=== PATIENT | female | born 1950 | race Caucasian/White ===

== ENCOUNTER 2022-10-06 12:06 | Inpatient (IN) | payer MEDICARE, BC, OTHER ==
[~2022-10-06] VITALS: Ht 167.6 cm; Wt 55.8 kg
[2022-10-06 12:31] LABS: HEMATOCRIT 40.9 % (31.2-41.9); MEAN CORPUSCULAR HEMOGLOBIN 25.1 uug (24.7-32.8); MEAN CORPUSCULAR VOLUME 78.2 fL (75.5-95.3); PLATELET COUNT (AUTO) 319 K/uL (179-408)
[2022-10-06 12:45] LABS: CARBON DIOXIDE 29 mmol/L (21-32); CHLORIDE 106 mmol/L (98-107); CREATININE 1.2 mg/dL (0.6-1.3); GLUCOSE 94 mg/dL (74-106); POTASSIUM 4.2 mmol/L (3.5-5.1); UREA NITROGEN, BLOOD 31 mg/dL (7-18)
[2022-10-06 12:46] LABS: *AMPHETAMINE, URINE NEGATIVE (NEGATIVE); *CANNABINOID, URINE NEGATIVE (NEGATIVE); *COCCAINE, URINE NEGATIVE (NEGATIVE); *OPIATE, URINE NEGATIVE (NEGATIVE); *PHENCYCLIDINE SCREEN,URINE NEGATIVE (NEGATIVE)
[2022-10-06 12:51] LABS: ALANINE AMINOTRANSFERASE 26 U/L (14-59); ALKALINE PHOSPHATASE 121 U/L (50-136); ASPARTATE AMINOTRANSFERASE 21 U/L (15-37); BILIRUBIN,DIRECT 0.1 mg/dL (0.0-0.2); BILIRUBIN,TOTAL 0.2 mg/dL (0.2-1.0); TOTAL PROTEIN, SERUM 7.1 g/dL (6.4-8.2)
[2022-10-06 12:52] LABS: ETHANOL < 3 MG/DL (0-0)
--- NOTE | 2022-10-06 12:55 | NUR ---
Pt out of ER for CT scan.
[2022-10-06] MEDS ORDERED: DULO60CA45 PO (12:59)
[2022-10-06] MEDS ORDERED: ALBU18HF2 INH (12:59)
[2022-10-06] MEDS ORDERED: MEMA10TA PO (12:59)
[2022-10-06] MEDS ORDERED: DONE10TA44 PO (12:59)
[2022-10-06] MEDS ORDERED: BISA10SU61 RC (12:59)
[2022-10-06] MEDS ORDERED: DICY20TA11 PO (12:59)
[2022-10-06] MEDS ORDERED: ACET-2154 PO (12:59)
[2022-10-06] MEDS ORDERED: OMEP20CA15 PO (12:59)
[2022-10-06] MEDS ORDERED: LIDO30AD10 TP (12:59)
[2022-10-06] MEDS ORDERED: LEVO50TA8 PO (12:59)
[2022-10-06] MEDS ORDERED: BUPR-319 PO (12:59)
[2022-10-06] MEDS ORDERED: OXCA300T15 PO (12:59)
[2022-10-06] MEDS ORDERED: MELA3TAB41 PO (12:59)
[2022-10-06] MEDS ORDERED: AMLO-212 PO (12:59)
[2022-10-06 13:18] LABS: *BILIRUBIN,URIN NEGATIVE (NEGATIVE); *BLOOD, URINE NEGATIVE (NEGATIVE); *CLARITY,URINE CLEAR (CLEAR); *COLOR,URINE YELLOW (YELLOW); *KETONES,URINE NEGATIVE (NEGATIVE); *UROBILINOGEN,URINE 0.2 E.U./dl (NORMAL); LEUKOCYTE ESTERASE ,URINE NEGATIVE (NEGATIVE); NITRITE, URINE NEGATIVE (NEGATIVE); UGLUCOSE NEGATIVE (NEGATIVE)
[2022-10-06 13:25] LABS: ACETAMINOPHEN < 2.0 ug/mL (10-30)
--- NOTE | 2022-10-06 13:50 | NUR ---
Pt is medically cleared by Dr Santana. PET called and spoke to Nelson DANW. ETA 1 hour.
[2022-10-06] MEDS ORDERED: OLANZAPINE 5 MG TABLET ONE (14:22)
[2022-10-06] MEDS ORDERED: OLANZAPINE 10 MG VIAL IM ONE ×2 (14:23→14:30)
[2022-10-06 16:00] VITALS: BP 141/78
[2022-10-06 16:11] VITALS: BP 141/78
--- NOTE | 2022-10-06 16:17 | NUR ---
Pt placed on 5150 hold by PET.
[2022-10-06] MEDS ORDERED: MAGNESIUM HYDROXIDE 30 ML LIQUID UDC PO PRN (16:30)
[2022-10-06] MEDS ORDERED: BLOOD SUGAR DIAGNOSTIC 1 EACH STRIP VI ONE (16:30)
[2022-10-06] MEDS ORDERED: MAG HYDROX/AL HYDROX/SIMETH 30 ML LIQUID UDC PO PRN (16:30)
--- NOTE | 2022-10-06 16:30 | NUR ---
Pt transfered to U, to room 141B, all belonging taken w/ Pt.
--- NOTE | 2022-10-06 16:34 | NUR ---
Admitted a case of 72 years old female from [facility] with history of Psychosis. Patient is on 5150 status hold. Patient arrived in a wheel chair accompanied by RN. Initial report given by Mare OGDEN. On admission patient was cooperative to physical assessment and vital signs. Patient ambulates with assistance, lower extremities with functional limits. Upon face to face patient appeared alert, oriented to person and place, redirectable, cooperative. Patient denies any suicidal or homicidal ideations nor any hallucinations or delusions. Patient was also offered brief orientation to unit rules and policies and given copy of patient's rights handbook. Patient belongings searched and inventoried, contraband removed. Psychiatrist Yaya and Medical physician Rene were informed and orders were carried out. Patient denies any pain or any discomfort.Emotional support provided. Fall and safety precautions implemented.
[2022-10-06] MEDS: CLONAZEPAM 0.5 MG TABLET PO PRN (19:47)
[2022-10-06 20:42] VITALS: BP 142/78
--- NOTE | 2022-10-06 20:54 | NUR ---
GPS: Pt.was anxious,restless,confused and disorganized. Frequent re-direction given. Poor insight to present situation. Compliant with her meds. Fall precautions observed. No aggressive behavior noted.
[2022-10-06] MEDS: TEMAZEPAM 7.5 MG CAPSULE PO PRN (21:20)
[2022-10-07 07:11] LABS: MEAN CORPUSCULAR VOLUME 78.2 fL (75.5-95.3); PLATELET COUNT (AUTO) 261 K/uL (179-408)
[2022-10-07 07:30] VITALS: BP 123/72
[2022-10-07 07:43] LABS: CARBON DIOXIDE 32 mmol/L (21-32); CHLORIDE 105 mmol/L (98-107); CREATININE 1.2 mg/dL (0.6-1.3); GLUCOSE 89 mg/dL (74-106); POTASSIUM 3.8 mmol/L (3.5-5.1); UREA NITROGEN, BLOOD 22 mg/dL (7-18)
[2022-10-07] MEDS: CITALOPRAM 20 MG TABLET PO SCH (10:59)
--- NOTE | 2022-10-07 12:07 | NUR ---
JUSTINE Facility Contact: JUSTINE contacted [facility] [address] [place] [address] ([phone]) and spoke with Ileana, social worker school, who confirmed pt is welcome back to the facility when she is ready for discharge.
--- NOTE | 2022-10-07 12:07 | NUR ---
JUSTINE Initial Discharge Note: Pt is currently residing at [facility] [address] [place] [address] ([phone]). JUSTINE contacted [facility] and spoke with Ileana, licensed clinical social worker, who confirmed pt is welcome back to the facility when she is ready for discharge. JUSTINE will continue to work with pt, family, and MD to ensure a safe and proper discharge plan.
--- NOTE | 2022-10-07 12:08 | NUR ---
JUSTINE Family Contact: SW called and left a voicemail for patient's son, Axel ([phone]) requesting call back to discuss treatment and discharge plan. Waiting for a call back.
--- NOTE | 2022-10-07 12:10 | NUR ---
Firearms Report: Repair Department Supervisor completed and submitted a [employer] firearms report for 5150 grave disability certifications. A copy of report has been placed in patient chart.
--- NOTE | 2022-10-07 13:09 | NUR ---
Brief Substance Abuse Intervention: Patient was provided with a brief substance abuse intervention and referred to the following substance abuse programs: [facility] [address] [place] [address] ([phone]), [facility] [address] [place] [address] ([phone]), [facility] [address], [place] [address] ([phone]).
[2022-10-07] MEDS ORDERED: OXCA150T13 PO (14:33)
[2022-10-07] MEDS ORDERED: MEMA5TAB42 PO (14:33)
--- NOTE | 2022-10-07 15:28 | NUR ---
Patient is pacing in the hallway, lost, not knowing where to go. Patient is cooperative with nursing care and compliant with medications. Patient states "I'm 30 years old and I live with my parents". Patient is encourage to verbalize concerns. Fall and safety precautions implemented.
[2022-10-07 16:00] VITALS: BP 133/87
[2022-10-07] MEDS ORDERED: ALBUTEROL SULFATE 8 GM HFA.AER.AD INH PRN (16:00)
[2022-10-07] MEDS ORDERED: ALBUTEROL SULFATE 2.5 MG/3 ML NEBU NEB PRN (16:30)
[2022-10-07] MEDS: MEMANTINE HCL 5 MG TABLET PO SCH (16:37)
[2022-10-07] MEDS: OXCARBAZEPINE 150 MG TABLET PO SCH (16:37)
[2022-10-07] MEDS ORDERED: OXCARBAZEPINE 150 MG TABLET PO SCH (17:00)
[2022-10-07] MEDS: LIDOCAINE 5% PATCH TD SCH (20:25)
[2022-10-07] MEDS: DONEPEZIL 10 MG TABLET PO SCH (20:26)
[2022-10-07] MEDS: TEMAZEPAM 7.5 MG CAPSULE PO PRN (20:26)
[2022-10-07 20:29] VITALS: BP 115/60
[2022-10-08] MEDS: CLONAZEPAM 0.5 MG TABLET PO PRN ×2 (02:10→14:38)
--- NOTE | 2022-10-08 03:48 | NUR ---
GPS NOTES: Patient is confused, forgetful, needs constant re-directions. Patient is delusional believing she is 35 y/o and her parents are alive. Reinforce reality with patient, she is argumentative and unable to be presented to reality. Patient c/o lower back pain, lidocaine patch applied. Prn temazepam given. Patient sleeping on and off during shift. Klonopin given for anxiety. Fall and safety precaution in place at all times.
[2022-10-08] MEDS: PANTOPRAZOLE SODIUM 40 MG TABLET.DR PO SCH (06:06)
[2022-10-08] MEDS: LEVOTHYROXINE SODIUM 50 MCG TABLET PO SCH (06:06)
[2022-10-08 07:42] VITALS: BP 143/77
[2022-10-08] MEDS: AMLODIPINE 5 MG TABLET PO SCH (08:11)
[2022-10-08] MEDS: MEMANTINE HCL 5 MG TABLET PO SCH ×2 (08:11→16:45)
[2022-10-08] MEDS: CITALOPRAM 20 MG TABLET PO SCH (08:12)
[2022-10-08] MEDS: OXCARBAZEPINE 150 MG TABLET PO SCH ×2 (08:12→16:45)
--- NOTE | 2022-10-08 14:22 | NUR ---
Received patient was anxious,restless,confused and disorganized unable to found her room . needs Frequent re-direction .patient with Poor insight to present situation. Compliant with her medication and nursing care. Fall precautions observed. No aggressive behavior noted.
[2022-10-08 16:04] VITALS: BP 131/77
[2022-10-08] MEDS: TEMAZEPAM 7.5 MG CAPSULE PO PRN (20:34)
[2022-10-08] MEDS: DONEPEZIL 10 MG TABLET PO SCH (20:34)
[2022-10-08] MEDS: LIDOCAINE 5% PATCH TD SCH (20:34)
[2022-10-08 21:47] VITALS: BP 125/63
[2022-10-09] MEDS: PANTOPRAZOLE SODIUM 40 MG TABLET.DR PO SCH (06:17)
[2022-10-09] MEDS: LEVOTHYROXINE SODIUM 50 MCG TABLET PO SCH (06:17)
[2022-10-09 07:56] VITALS: BP 149/77
[2022-10-09] MEDS: OXCARBAZEPINE 150 MG TABLET PO SCH ×3 (08:16→16:37)
[2022-10-09] MEDS: CITALOPRAM 20 MG TABLET PO SCH (08:16)
[2022-10-09] MEDS: MEMANTINE HCL 5 MG TABLET PO SCH ×2 (08:17→16:37)
[2022-10-09] MEDS: AMLODIPINE 5 MG TABLET PO SCH (08:17)
[2022-10-09] MEDS: CLONAZEPAM 0.5 MG TABLET PO PRN (12:56)
[2022-10-09 16:07] VITALS: BP 124/74
--- NOTE | 2022-10-09 16:49 | NUR ---
Pt. noted to be confused during the shift and wondering around. Able to make needs known. Compliance with the care given. All need attended and noted. Will keep monitoring the patient.
[2022-10-09 20:00] VITALS: BP 146/82
[2022-10-09] MEDS: LIDOCAINE 5% PATCH TD SCH (20:17)
[2022-10-09] MEDS: DONEPEZIL 10 MG TABLET PO SCH (20:17)
[2022-10-09] MEDS: TEMAZEPAM 7.5 MG CAPSULE PO PRN (20:58)
[2022-10-10] MEDS: CLONAZEPAM 0.5 MG TABLET PO PRN ×3 (03:32→17:04)
[2022-10-10] MEDS: PANTOPRAZOLE SODIUM 40 MG TABLET.DR PO SCH (06:08)
[2022-10-10] MEDS: LEVOTHYROXINE SODIUM 50 MCG TABLET PO SCH (06:09)
--- NOTE | 2022-10-10 06:42 | NUR ---
Patient slept for approx 7 hrs through the night, She was noted with depressed mood and anxious. she stated, my dad told me she hate me, she said a ruined his life". Patient requires reality orientation and reassurance.she is able to CFS. will continue to monitor.
[2022-10-10 07:44] VITALS: BP 138/73
[2022-10-10] MEDS: OXCARBAZEPINE 150 MG TABLET PO SCH ×3 (08:13→16:16)
[2022-10-10] MEDS: CITALOPRAM 20 MG TABLET PO SCH (08:13)
[2022-10-10] MEDS: MEMANTINE HCL 5 MG TABLET PO SCH ×2 (08:13→16:16)
[2022-10-10] MEDS: AMLODIPINE 5 MG TABLET PO SCH (08:14)
--- NOTE | 2022-10-10 11:40 | NUR ---
Pt. noted o be anxious and screaming at people. Clonazepam administered and noted patient less anxious and calm down. Able to make the need known. All need attended and met.
[2022-10-10 16:06] VITALS: BP 119/68
[2022-10-10 20:33] VITALS: BP 137/66
[2022-10-10] MEDS: DONEPEZIL 10 MG TABLET PO SCH (20:35)
[2022-10-10] MEDS: TEMAZEPAM 7.5 MG CAPSULE PO PRN (20:36)
[2022-10-10] MEDS: LIDOCAINE 5% PATCH TD SCH (20:36)
[2022-10-11] MEDS: CLONAZEPAM 0.5 MG TABLET PO PRN ×2 (02:37→20:21)
--- NOTE | 2022-10-11 04:13 | NUR ---
GPS NOTES: Patient remains anxious, delusional believing her parents are alive, and fearful. Needs constant redirection to reality. Patient is labile with poor impulse control. She also is confused and forgetful. Prn temazepam given with effectivity. Patient had crying episode stating she is fearful to be in her as someone is going to eat her. Re-assure patient to be in a safe environment. Klonopin given prn, with effectivity. All needs met and attended. Safety and precaution implemented at all times.
[2022-10-11] MEDS: PANTOPRAZOLE SODIUM 40 MG TABLET.DR PO SCH (06:13)
[2022-10-11] MEDS: LEVOTHYROXINE SODIUM 50 MCG TABLET PO SCH (06:13)
[2022-10-11 07:30] VITALS: BP 139/61
[2022-10-11] MEDS: OXCARBAZEPINE 150 MG TABLET PO SCH ×3 (08:20→16:28)
[2022-10-11] MEDS: AMLODIPINE 5 MG TABLET PO SCH (08:20)
[2022-10-11] MEDS: CITALOPRAM 20 MG TABLET PO SCH (08:20)
[2022-10-11] MEDS: MEMANTINE HCL 5 MG TABLET PO SCH ×2 (08:20→16:28)
--- NOTE | 2022-10-11 14:54 | NUR ---
Patient is sociable, labile, anxious at times, cooperative with care, and compliant with medications. A/O X 2 to person, place. Emotional support provided. Fall and safety precautions implemented.
--- NOTE | 2022-10-11 15:34 | NUR ---
Noted resident being calm and walking around. Compliance with the care given. all need attended and met. Ambulatory and needs minimum of assist for ADLs. will keep monitoring the resident.
[2022-10-11 16:48] VITALS: BP 158/78
[2022-10-11 19:00] VITALS: BP 107/75
[2022-10-11] MEDS: DONEPEZIL 10 MG TABLET PO SCH (20:21)
[2022-10-11] MEDS: OLANZAPINE 2.5 MG TABLET PO SCH (20:21)
[2022-10-11] MEDS: LIDOCAINE 5% PATCH TD SCH (20:21)
[2022-10-11] MEDS ORDERED: OLANZAPINE 10 MG VIAL IM STA (20:56)
[2022-10-11] MEDS ORDERED: LORAZEPAM 2 MG/1 ML VIAL IM ONE (21:00)
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
[2022-10-12] MEDS: TEMAZEPAM 7.5 MG CAPSULE PO PRN ×2 (00:15→23:36)
[2022-10-12] MEDS: LEVOTHYROXINE SODIUM 50 MCG TABLET PO SCH (06:04)
[2022-10-12] MEDS: PANTOPRAZOLE SODIUM 40 MG TABLET.DR PO SCH (06:04)
[2022-10-12 07:30] VITALS: BP 132/72
[2022-10-12] MEDS: OXCARBAZEPINE 150 MG TABLET PO SCH ×3 (09:39→17:22)
[2022-10-12] MEDS: CITALOPRAM 20 MG TABLET PO SCH (09:39)
[2022-10-12] MEDS: MEMANTINE HCL 5 MG TABLET PO SCH ×2 (09:39→17:22)
[2022-10-12] MEDS: AMLODIPINE 5 MG TABLET PO SCH (09:40)
--- NOTE | 2022-10-12 14:49 | NUR ---
Patient is forgetful, confused at times, , irritable, compliant with medications. Pt. is A/O X 2 to person, place. Ambulates with walker. Reality orientation provided. Fall and safety precautions implemented.
[2022-10-12 17:14] VITALS: BP 118/66
[2022-10-12] MEDS: CLONAZEPAM 0.5 MG TABLET PO PRN (19:46)
[2022-10-12] MEDS: LIDOCAINE 5% PATCH TD SCH (20:12)
[2022-10-12] MEDS: DONEPEZIL 10 MG TABLET PO SCH (20:12)
[2022-10-12 20:28] VITALS: BP 153/79
[2022-10-12] MEDS: OLANZAPINE 2.5 MG TABLET PO SCH (20:36)
--- NOTE | 2022-10-12 20:42 | NUR ---
GPS: Pt.is resting comfortably on a alli-chair near nurses station per her request. Confused,forgetful,less anxious now. Re-directed and re-assured prn. Fall precautions observed. Compliant with her bedtime meds. No aggressive behavior noted. Denies pain/discomfort. Needs attended. Will continue to monitor.
[2022-10-13] MEDS: PANTOPRAZOLE SODIUM 40 MG TABLET.DR PO SCH (06:25)
[2022-10-13] MEDS: LEVOTHYROXINE SODIUM 50 MCG TABLET PO SCH (06:25)
[2022-10-13 07:30] VITALS: BP 106/77
[2022-10-13] MEDS: CITALOPRAM 20 MG TABLET PO SCH (08:32)
[2022-10-13] MEDS: MEMANTINE HCL 5 MG TABLET PO SCH ×2 (08:32→16:12)
[2022-10-13] MEDS: CLONAZEPAM 0.5 MG TABLET PO PRN ×3 (08:32→20:15)
[2022-10-13] MEDS: OXCARBAZEPINE 150 MG TABLET PO SCH ×3 (08:32→16:12)
[2022-10-13] MEDS: AMLODIPINE 5 MG TABLET PO SCH (08:33)
--- NOTE | 2022-10-13 15:24 | NUR ---
patient is confused and disoriented paranoia and delusional, she is taking about her parents , she said that 'i going to call my parents to pick me up" , patient with poor insight and poor judgement ,prn medication offered will continue close monitoring.
[2022-10-13 16:17] VITALS: BP 137/70
[2022-10-13 20:00] VITALS: BP 141/67
[2022-10-13] MEDS: LIDOCAINE 5% PATCH TD SCH (20:20)
[2022-10-13] MEDS: DONEPEZIL 10 MG TABLET PO SCH (20:20)
[2022-10-13] MEDS: OLANZAPINE 2.5 MG TABLET PO SCH (20:40)
[2022-10-14] MEDS: LEVOTHYROXINE SODIUM 50 MCG TABLET PO SCH (06:08)
[2022-10-14] MEDS: PANTOPRAZOLE SODIUM 40 MG TABLET.DR PO SCH (06:08)
[2022-10-14 07:30] VITALS: BP 168/89
[2022-10-14] MEDS ORDERED: LORAZEPAM 2 MG/1 ML VIAL IM ONE (08:15)
[2022-10-14] MEDS ORDERED: OLANZAPINE 10 MG VIAL IM ONE (08:15)
--- NOTE | 2022-10-14 08:39 | NUR ---
Patient became agitated, aggressive, verbally abusive, throwing her walker against escamilla and door, threatening physical harm to self, others, and environment which could lead to injury, striking out at others. Psychiatrist ordered Ativan 0.5 mg IM, Zyprexa 5 mg IM. Security was called and 3 people were necessary to administer patient, no force needed or applied. Reassurance given. Fall and safety precautions implemented.
[2022-10-14] MEDS: CITALOPRAM 20 MG TABLET PO SCH (09:16)
[2022-10-14] MEDS: MEMANTINE HCL 5 MG TABLET PO SCH ×2 (09:17→17:08)
[2022-10-14] MEDS: AMLODIPINE 5 MG TABLET PO SCH (09:17)
[2022-10-14] MEDS: OXCARBAZEPINE 150 MG TABLET PO SCH ×3 (09:17→17:08)
[2022-10-14] MEDS: OLANZAPINE 2.5 MG TABLET PO SCH (09:24)
[2022-10-14] MEDS: NAPROXEN 500 MG TABLET PO PRN ×2 (11:50→20:14)
--- NOTE | 2022-10-14 14:47 | NUR ---
Patient is confused, disoriented, forgetful, irritable at times, verbally abusive, labile, compliant with medications. A/O X 2 to person, place. Patient requires minimal assistance with ADL. Emotional support provided. Fall and safety precautions implemented.
[2022-10-14 16:56] VITALS: BP 144/64
[2022-10-14] MEDS: CLONAZEPAM 0.5 MG TABLET PO PRN (18:16)
[2022-10-14 20:13] VITALS: BP 133/56
[2022-10-14] MEDS: OLANZAPINE 5 MG TABLET PO SCH (20:14)
[2022-10-14] MEDS: DONEPEZIL 10 MG TABLET PO SCH (20:14)
[2022-10-14] MEDS: LIDOCAINE 5% PATCH TD SCH (20:15)
[2022-10-14] MEDS: TEMAZEPAM 7.5 MG CAPSULE PO PRN (20:56)
--- NOTE | 2022-10-15 04:01 | NUR ---
GPS NOTES: Patient is confused and needy at the beginning of shift. She attempt to get up of bed multiple times, educate her to stay in bed for her safety d/t unsteady gait. She is somewhat re-directable, but with crying spells and anxiety. Patient is c/o neck pain and back pain, yelling when being touched. Position w/ comfortable position. Naproxen given to patient, and cold compress applied with some relief. She is very fearful, needs re-assurace to be in a safe environment. Restoril given. She slept intermittently, crying when she wakes up. Sit and stay with patient to feel safe. Klonopin given. Needs met and attended. Safety and fall precaution implemented.
[2022-10-15] MEDS: CLONAZEPAM 0.5 MG TABLET PO PRN ×2 (04:10→21:52)
[2022-10-15] MEDS: PANTOPRAZOLE SODIUM 40 MG TABLET.DR PO SCH (06:11)
[2022-10-15] MEDS: LEVOTHYROXINE SODIUM 50 MCG TABLET PO SCH (06:12)
[2022-10-15 08:46] VITALS: BP 162/69
[2022-10-15] MEDS: OLANZAPINE 2.5 MG TABLET PO SCH (09:17)
[2022-10-15] MEDS: CITALOPRAM 20 MG TABLET PO SCH (09:17)
[2022-10-15] MEDS: MEMANTINE HCL 5 MG TABLET PO SCH ×2 (09:17→17:04)
[2022-10-15] MEDS: OXCARBAZEPINE 150 MG TABLET PO SCH ×3 (09:17→17:04)
[2022-10-15] MEDS: AMLODIPINE 5 MG TABLET PO SCH (09:17)
--- NOTE | 2022-10-15 10:08 | NUR ---
Pt received lying in bed resting comfortably. No aggressive or combative behavior noted at this time. Pt confused at times but redirectable. Compliant with all scheduled medications as ordered.
[2022-10-15 16:16] VITALS: BP 148/69
[2022-10-15 20:08] VITALS: BP 149/69
[2022-10-15] MEDS: LIDOCAINE 5% PATCH TD SCH (20:09)
[2022-10-15] MEDS: DONEPEZIL 10 MG TABLET PO SCH (20:09)
[2022-10-15] MEDS: OLANZAPINE 5 MG TABLET PO SCH (20:09)
--- NOTE | 2022-10-15 20:40 | NUR ---
GPS: Remains confused and forgetful. Less anxious and irritable. Compliant with her bedtime meds. Re-assured and re-directed prn. Assisted to the bathroom for elimination purposes. Fall precautions observed. Needs attended. Will continue to monitor.
[2022-10-15] MEDS: TEMAZEPAM 7.5 MG CAPSULE PO PRN (21:06)
[2022-10-15] MEDS ORDERED: NAPROXEN 500 MG TABLET ONE (23:22)
[2022-10-16] MEDS: NAPROXEN 500 MG TABLET PO PRN ×2 (00:31→10:02)
[2022-10-16] MEDS: CLONAZEPAM 0.5 MG TABLET PO PRN ×3 (05:48→16:42)
[2022-10-16] MEDS: LEVOTHYROXINE SODIUM 50 MCG TABLET PO SCH (06:16)
[2022-10-16] MEDS: PANTOPRAZOLE SODIUM 40 MG TABLET.DR PO SCH (06:16)
[2022-10-16 07:38] VITALS: BP 144/78
[2022-10-16] MEDS: CITALOPRAM 20 MG TABLET PO SCH (08:17)
[2022-10-16] MEDS: OXCARBAZEPINE 150 MG TABLET PO SCH ×3 (08:17→16:43)
[2022-10-16] MEDS: OLANZAPINE 2.5 MG TABLET PO SCH (08:17)
[2022-10-16] MEDS: MEMANTINE HCL 5 MG TABLET PO SCH ×2 (08:17→16:42)
[2022-10-16] MEDS: AMLODIPINE 5 MG TABLET PO SCH (08:18)
[2022-10-16 16:03] VITALS: BP 135/76
--- NOTE | 2022-10-16 16:22 | NUR ---
patient remains confused and disorient forgetful ,ambulate with FWW and unsteady gait.patient with poor impulse control episode of yelling for help, compliant with schedule medication,will continue close monitoring.
[2022-10-16 19:26] VITALS: BP 152/73
[2022-10-16] MEDS: LIDOCAINE 5% PATCH TD SCH (20:21)
[2022-10-16] MEDS: DONEPEZIL 10 MG TABLET PO SCH (20:21)
[2022-10-16] MEDS: OLANZAPINE 5 MG TABLET PO SCH (20:21)
[2022-10-17] MEDS: NAPROXEN 500 MG TABLET PO PRN ×4 (03:41→14:39)
--- NOTE | 2022-10-17 03:44 | NUR ---
Patient requested medication to help her manage the pain in her back and back of neck. Gave Naproxen 500mg. Will continue to monitor.
[2022-10-17] MEDS: PANTOPRAZOLE SODIUM 40 MG TABLET.DR PO SCH (06:16)
[2022-10-17] MEDS: LEVOTHYROXINE SODIUM 50 MCG TABLET PO SCH (06:16)
[2022-10-17 07:40] VITALS: BP 140/65
[2022-10-17] MEDS: OLANZAPINE 2.5 MG TABLET PO SCH (08:20)
[2022-10-17] MEDS: CLONAZEPAM 0.5 MG TABLET PO PRN ×2 (08:20→14:39)
[2022-10-17] MEDS: CITALOPRAM 20 MG TABLET PO SCH (08:20)
[2022-10-17] MEDS: OXCARBAZEPINE 150 MG TABLET PO SCH ×3 (08:20→16:24)
[2022-10-17] MEDS: MEMANTINE HCL 5 MG TABLET PO SCH ×2 (08:21→16:24)
[2022-10-17] MEDS: AMLODIPINE 5 MG TABLET PO SCH (08:24)
--- NOTE | 2022-10-17 11:03 | NUR ---
JUSTINE Discharge update: JUSTINE contacted [facility] [address] [place] [address] ([phone]) and spoke with Ileana, social media community manager, who confirmed pt is welcome back to the facility this Monday, October 19. Ileana stated she is going to confirm once again with her director and inform this typewriters functional tester with any further questions.
[2022-10-17 15:30] VITALS: BP 128/55
--- NOTE | 2022-10-17 17:17 | NUR ---
Received patient remains confused and disorient forgetful ,ambulate with FWW and unsteady gait.patient with poor impulse control ,with episode of agitated at time PRN mediation given as [id number] compliant with schedule medication,will continue close monitoring.
[2022-10-17 19:52] VITALS: BP 131/67
[2022-10-17] MEDS: OLANZAPINE 5 MG TABLET PO SCH (20:28)
[2022-10-17] MEDS: LIDOCAINE 5% PATCH TD SCH (20:28)
[2022-10-17] MEDS: DONEPEZIL 10 MG TABLET PO SCH (20:28)
[2022-10-17] MEDS: TEMAZEPAM 7.5 MG CAPSULE PO PRN (21:12)
--- NOTE | 2022-10-17 21:16 | NUR ---
Patient requested medication to help with trouble sleeping. Gave Restoril po prn for insomnia. Will continue to monitor.
--- NOTE | 2022-10-17 22:30 | NUR ---
Upon reassessment of patient r/t insomnia and Temazepam 7.5 mg, pt was still awake. Medication was ineffective.
[2022-10-18] MEDS: CLONAZEPAM 0.5 MG TABLET PO PRN ×2 (02:57→18:07)
[2022-10-18] MEDS: PANTOPRAZOLE SODIUM 40 MG TABLET.DR PO SCH (07:00)
[2022-10-18] MEDS: LEVOTHYROXINE SODIUM 50 MCG TABLET PO SCH (07:00)
[2022-10-18 07:30] VITALS: BP 146/76
[2022-10-18] MEDS: OLANZAPINE 2.5 MG TABLET PO SCH (08:15)
[2022-10-18] MEDS: MEMANTINE HCL 5 MG TABLET PO SCH ×2 (08:15→16:47)
[2022-10-18] MEDS: OXCARBAZEPINE 150 MG TABLET PO SCH ×3 (08:15→16:47)
[2022-10-18] MEDS: CITALOPRAM 20 MG TABLET PO SCH (08:16)
[2022-10-18] MEDS: AMLODIPINE 5 MG TABLET PO SCH (08:16)
--- NOTE | 2022-10-18 16:12 | NUR ---
Patient is labile, sundowner, gets more confused at the end of the day, easily irritable, anxious, disoriented. Patient states "I'm 20 today" Patient requires more than minimal assistance with ADL. Patient is encourage to verbalize feelings and emotions. Fall and safety precautions implemented.
[2022-10-18 16:53] VITALS: BP 160/80
--- NOTE | 2022-10-18 18:10 | NUR ---
Patient became agitated, yelling at others, anxious, Klonopin 0.5 mg is given at 18:07, will be monitored for effectiveness.
[2022-10-18] MEDS: LIDOCAINE 5% PATCH TD SCH (20:11)
[2022-10-18] MEDS: OLANZAPINE 5 MG TABLET PO SCH (20:11)
[2022-10-18] MEDS: DONEPEZIL 10 MG TABLET PO SCH (20:11)
--- NOTE | 2022-10-18 20:41 | NUR ---
GPS: Pt.was anxious,restless,agitated during shift change but now calm and cooperative with staff. Due bedtime meds.taken without any problems. Re-directed and re-assured prn. Safety emphasized. Needs attended.
[2022-10-18 20:56] VITALS: BP 131/60
[2022-10-18] MEDS: TEMAZEPAM 7.5 MG CAPSULE PO PRN (21:20)
[2022-10-19] MEDS: PANTOPRAZOLE SODIUM 40 MG TABLET.DR PO SCH (06:02)
[2022-10-19] MEDS: LEVOTHYROXINE SODIUM 50 MCG TABLET PO SCH (06:02)
[2022-10-19 07:30] VITALS: BP 121/82
[2022-10-19] MEDS: OXCARBAZEPINE 150 MG TABLET PO SCH ×3 (08:20→16:50)
[2022-10-19] MEDS: CITALOPRAM 20 MG TABLET PO SCH (08:21)
[2022-10-19] MEDS: MEMANTINE HCL 5 MG TABLET PO SCH ×2 (08:21→16:50)
[2022-10-19] MEDS: OLANZAPINE 2.5 MG TABLET PO SCH ×2 (08:21→20:36)
[2022-10-19] MEDS: AMLODIPINE 5 MG TABLET PO SCH (08:21)
[2022-10-19] MEDS ORDERED: OLANZAPINE 10 MG VIAL IM ONE (10:45)
[2022-10-19] MEDS ORDERED: LORAZEPAM 2 MG/1 ML VIAL IM ONE (10:45)
--- NOTE | 2022-10-19 11:57 | NUR ---
Patient became anxious, verbally abusive, aggressive, throwing water at staff, threatening physical harm to others, striking out at others. Psychiatrist ordered Ativan 0.5 mg IM, Zyprexa 5 mg IM. Three staff members were necessary to administer patient, no force needed. Emotional support provided. Fall and safety precautions implemented.
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
[2022-10-19 16:20] VITALS: BP 119/75
[2022-10-19 20:10] VITALS: BP 147/64
[2022-10-19] MEDS: DONEPEZIL 10 MG TABLET PO SCH (20:37)
[2022-10-19] MEDS: LIDOCAINE 5% PATCH TD SCH (20:37)
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
[2022-10-20] MEDS: TEMAZEPAM 7.5 MG CAPSULE PO PRN ×2 (01:25→21:11)
[2022-10-20] MEDS: NAPROXEN 500 MG TABLET PO PRN ×2 (01:55→16:05)
[2022-10-20] MEDS: LEVOTHYROXINE SODIUM 50 MCG TABLET PO SCH (06:32)
[2022-10-20] MEDS: PANTOPRAZOLE SODIUM 40 MG TABLET.DR PO SCH (06:32)
[2022-10-20 07:30] VITALS: BP 135/64
[2022-10-20 07:37] LABS: ALANINE AMINOTRANSFERASE 25 U/L (14-59); ALKALINE PHOSPHATASE 111 U/L (50-136); ASPARTATE AMINOTRANSFERASE 29 U/L (15-37); BILIRUBIN,TOTAL 0.3 mg/dL (0.2-1.0); CARBON DIOXIDE 32 mmol/L (21-32); CHLORIDE 106 mmol/L (98-107); CREATININE 1.4 mg/dL (0.6-1.3); GLUCOSE 101 mg/dL (74-106); POTASSIUM 4.2 mmol/L (3.5-5.1); UREA NITROGEN, BLOOD 35 mg/dL (7-18)
[2022-10-20] MEDS: CITALOPRAM 20 MG TABLET PO SCH (08:46)
[2022-10-20] MEDS: OLANZAPINE 5 MG TABLET PO SCH (08:46)
[2022-10-20] MEDS: OXCARBAZEPINE 150 MG TABLET PO SCH ×3 (08:46→16:06)
[2022-10-20] MEDS: MEMANTINE HCL 5 MG TABLET PO SCH ×2 (08:46→16:05)
[2022-10-20] MEDS: AMLODIPINE 5 MG TABLET PO SCH (08:47)
[2022-10-20] MEDS: CLONAZEPAM 0.5 MG TABLET PO PRN ×2 (14:24→22:15)
--- NOTE | 2022-10-20 14:45 | NUR ---
Received patient sleeping in her room. Patient is confused, trying to put a shirt through her legs. Patient is forgetful, trying to remember the words and what she has to say. Patient is labile, either extremely nice or aggressive. Patient is delusional "My father last week, and my Mom is sick". Patient requires more than minimal assistance with ADL. Reassurance given. Fall and safety precautions implemented.
[2022-10-20 20:09] VITALS: BP 157/71
[2022-10-20] MEDS: DONEPEZIL 10 MG TABLET PO SCH (20:21)
[2022-10-20] MEDS: LIDOCAINE 5% PATCH TD SCH (20:21)
[2022-10-20] MEDS: OLANZAPINE 2.5 MG TABLET PO SCH (20:21)
--- NOTE | 2022-10-20 20:27 | NUR ---
GPS: Pt.is anxious,confused,forgetful and disorganized. Needs frequent re-direction and re-assurance from staff. Med.compliant. No aggressive behavior noted. Labile mood and with poor impulse control. Safe environment provided. Will continue to monitor.
[2022-10-21] MEDS: PANTOPRAZOLE SODIUM 40 MG TABLET.DR PO SCH (06:35)
[2022-10-21] MEDS: LEVOTHYROXINE SODIUM 50 MCG TABLET PO SCH (06:35)
[2022-10-21 07:30] VITALS: BP 158/65
[2022-10-21] MEDS: OXCARBAZEPINE 150 MG TABLET PO SCH ×2 (08:11→17:07)
[2022-10-21] MEDS: AMLODIPINE 5 MG TABLET PO SCH (08:11)
[2022-10-21] MEDS: MEMANTINE HCL 5 MG TABLET PO SCH ×2 (08:11→17:06)
[2022-10-21] MEDS: CITALOPRAM 20 MG TABLET PO SCH (08:11)
[2022-10-21] MEDS: CLONAZEPAM 0.5 MG TABLET PO PRN ×3 (08:11→22:42)
[2022-10-21] MEDS: OLANZAPINE 5 MG TABLET PO SCH ×2 (08:13→20:14)
[2022-10-21] MEDS ORDERED: OLANZAPINE 5 MG TABLET PO ONE (09:00)
--- NOTE | 2022-10-21 13:47 | NUR ---
JUSTINE Discharge Update: JUSTINE spoke with Maureen and Shandra in admissions at [facility] located at [address] [address] ([phone]) regarding pt's anticipated discharge date for next week. Maureen stated she will contact this repairer typewriter on Monday to confirm a transportation day and time. JUSTINE sent updated referrals of pt to F: ([phone]) ATTN to Elena.
--- NOTE | 2022-10-21 14:43 | NUR ---
patient remains confused and disorient forgetful ,ambulate with FWW and unsteady gait.patient always forgot to use her walker. patient with poor impulse control ,with episode of agitated at time PRN mediation given as ordered compliant with schedule medication,shower given will continue close monitoring.
[2022-10-21 16:57] VITALS: BP 179/62
[2022-10-21] MEDS: LIDOCAINE 5% PATCH TD SCH (20:14)
[2022-10-21] MEDS: DONEPEZIL 10 MG TABLET PO SCH (20:14)
[2022-10-21 20:45] VITALS: BP 133/60
[2022-10-21] MEDS ORDERED: OLANZAPINE 2.5 MG TABLET PO SCH (21:00)
--- NOTE | 2022-10-21 22:44 | NUR ---
GPS: PATIENT C/O ANXIETY. KLONOPIN 0.5 MG PO GIVEN FOR ANXIETY.
--- NOTE | 2022-10-21 23:44 | NUR ---
GPS: Patient is calm now. prn for anxiety effective.
[2022-10-21] MEDS: TEMAZEPAM 7.5 MG CAPSULE PO PRN (23:45)
--- NOTE | 2022-10-22 05:47 | NUR ---
GPS: Remains confused and disorient. patient always forgot to use her walker. SLEPT 4.40 hrs only after sleeping meds given. patient is very forgetful and with poor impulse control ,with episode of agitated at time PRN mediation given as ordered and effective. compliant with schedule medication. resting in bed comfortably. bed alarm on.
[2022-10-22] MEDS: PANTOPRAZOLE SODIUM 40 MG TABLET.DR PO SCH (06:22)
[2022-10-22] MEDS: LEVOTHYROXINE SODIUM 50 MCG TABLET PO SCH (06:22)
[2022-10-22 07:40] VITALS: BP 149/69
[2022-10-22] MEDS: CITALOPRAM 20 MG TABLET PO SCH (08:46)
[2022-10-22] MEDS: MEMANTINE HCL 5 MG TABLET PO SCH ×2 (08:47→16:51)
[2022-10-22] MEDS: OLANZAPINE 5 MG TABLET PO SCH ×2 (08:47→20:22)
[2022-10-22] MEDS: OXCARBAZEPINE 150 MG TABLET PO SCH ×3 (08:47→21:08)
[2022-10-22] MEDS: AMLODIPINE 5 MG TABLET PO SCH (08:47)
[2022-10-22 16:16] VITALS: BP 162/88
[2022-10-22 20:00] VITALS: BP 152/80
[2022-10-22] MEDS: DONEPEZIL 10 MG TABLET PO SCH (20:22)
[2022-10-22] MEDS: LIDOCAINE 5% PATCH TD SCH (20:22)
[2022-10-22] MEDS: NAPROXEN 500 MG TABLET PO PRN (22:22)
--- NOTE | 2022-10-22 22:33 | NUR ---
GPS: Patient c/o gen:pain. naproxin 500 mg po prn given for pain.
--- NOTE | 2022-10-22 23:33 | NUR ---
GPS: Patient stated feeling better now. prn for pain effective.
--- NOTE | 2022-10-23 03:44 | NUR ---
GPS: Patient gets more incoherent and confused at night time, forgetful, delusional. Patient states some kids was in my room reorientation provided as needed. "This is my house, not your house. Patient requires minimal assistance with ADL. Fall and safety precautions implemented.
--- NOTE | 2022-10-23 05:27 | NUR ---
GPS: Patient Remains confused and disoriented. patient is very forgetful and with poor impulse control. compliant with schedule medication. resting in bed comfortably. bed alarm on.
[2022-10-23] MEDS: NAPROXEN 500 MG TABLET PO PRN (05:34)
--- NOTE | 2022-10-23 05:37 | NUR ---
GPS: Patient c/o gen:pain. naproxin 500 mg po prn given for pain.
[2022-10-23] MEDS: LEVOTHYROXINE SODIUM 50 MCG TABLET PO SCH (06:09)
[2022-10-23] MEDS: PANTOPRAZOLE SODIUM 40 MG TABLET.DR PO SCH (06:09)
--- NOTE | 2022-10-23 06:20 | NUR ---
GPS: Patient slept 5 hrs after restoril 7.5 mg po given.
[2022-10-23 07:58] VITALS: BP 170/77
[2022-10-23] MEDS: OLANZAPINE 5 MG TABLET PO SCH ×2 (08:41→20:36)
[2022-10-23] MEDS: MEMANTINE HCL 5 MG TABLET PO SCH ×2 (08:41→17:49)
[2022-10-23] MEDS: AMLODIPINE 5 MG TABLET PO SCH (08:41)
[2022-10-23] MEDS: CITALOPRAM 20 MG TABLET PO SCH (08:41)
[2022-10-23] MEDS: OXCARBAZEPINE 150 MG TABLET PO SCH (10:47)
[2022-10-23] MEDS: OXCARBAZEPINE 300 MG TABLET PO SCH ×2 (12:56→17:49)
[2022-10-23 16:03] VITALS: BP 140/69
[2022-10-23 19:55] VITALS: BP 138/65
--- NOTE | 2022-10-23 20:30 | NUR ---
RECEIVED PATIENT WALKING IN THE HALLWAY WITH THE AID OF A FRONT WHEEL WALKER. PATIENT IS NOTED A/O X 1. SHE IS FORGETFUL, TALKS ABOUT THE PASS. ABOUT HIS MOM AND DAD IF THEY WERE STILL ALIVE. HE IS ATTENTION SEEKER, DEMANDING A TIMES AND LABILE. SHE IS EASILY REDIRECTABLE, HOWEVER. SHE IS COMPLIANT WITH PLAN OF CARE. PATIENT V/S ARE STABLE. SHE WAS GIVEN PO FLUIDS AND SNACKS. SHE IS REASSRUED FOR HER SAFETY. SAFETY AND FALL PRECAUTIONS ARE IN PLACE. WILL CONTINUE TO MONITOR.
[2022-10-23] MEDS: DONEPEZIL 10 MG TABLET PO SCH (20:35)
[2022-10-23] MEDS: LIDOCAINE 5% PATCH TD SCH (20:38)
[2022-10-23] MEDS: TEMAZEPAM 7.5 MG CAPSULE PO PRN (21:47)
[2022-10-24] MEDS: LEVOTHYROXINE SODIUM 50 MCG TABLET PO SCH (06:02)
[2022-10-24] MEDS: PANTOPRAZOLE SODIUM 40 MG TABLET.DR PO SCH (06:02)
--- NOTE | 2022-10-24 06:25 | NUR ---
patient slept for approx 5.45 hrs through the night. she was observed crying, low mood but she denied SI. she is able to CFS. patient is compliant with medication regiment diet and plan of care.
[2022-10-24 07:42] VITALS: BP 150/78
[2022-10-24] MEDS: CLONAZEPAM 0.5 MG TABLET PO PRN ×3 (08:19→20:15)
[2022-10-24] MEDS: OXCARBAZEPINE 300 MG TABLET PO SCH ×3 (08:19→16:23)
[2022-10-24] MEDS: CITALOPRAM 20 MG TABLET PO SCH (08:19)
[2022-10-24] MEDS: OLANZAPINE 5 MG TABLET PO SCH ×2 (08:20→20:15)
[2022-10-24] MEDS: AMLODIPINE 5 MG TABLET PO SCH (08:20)
[2022-10-24] MEDS: MEMANTINE HCL 5 MG TABLET PO SCH ×2 (08:20→16:23)
--- NOTE | 2022-10-24 10:39 | NUR ---
JUSTINE Discharge Update: JUSTINE spoke with Elena in admissions ([phone]) at [facility] located at [address] [address] regarding pt's anticipated discharge date for end of this week. Elena stated they will need updated clinicals with behavior progress as well as a 2 day notice to arrange transportation for the pt from [facility]. F: ([phone]) ATTN to Elena.
--- NOTE | 2022-10-24 11:57 | NUR ---
JUSTINE Family Contact: JUSTINE contacted pt's son, Sathya ([phone]) and left a voicemail requesting a call back to discuss the pt's discharge plan this week.
[2022-10-24] MEDS: NAPROXEN 500 MG TABLET PO PRN (15:35)
[2022-10-24 15:43] VITALS: BP 143/96
--- NOTE | 2022-10-24 15:50 | NUR ---
patient is alert and oriented x1 to her name only, patient is delusional taking about her father ,gait is unsteady encouraged to use FWW, patient is forgetful redirected at all time,patient compliant with all schedule medication ,unable to plan for self care.
--- NOTE | 2022-10-24 16:21 | NUR ---
JUSTINE Discharge Update: JUSTINE spoke with Elena in admissions ([phone]) at [facility] located at [address] [address] regarding pt's anticipated discharge date for end of this week. Elena stated they will need updated clinicals with behavior progress as well as a 2 day notice to arrange transportation for the pt from [facility]. F: ([phone]) ATTN to Elena. NO Discharge date by the psychiatrist yet as of today.
--- NOTE | 2022-10-24 16:23 | NUR ---
JUSTINE Family Contact: Pt's son, Sathya ([phone]) returned this SW's call and left a voicemail stating he can best be reached at his email [email or web address].
[2022-10-24] MEDS: LIDOCAINE 5% PATCH TD SCH (20:15)
[2022-10-24] MEDS: DONEPEZIL 10 MG TABLET PO SCH (20:15)
[2022-10-24 20:20] VITALS: BP 142/74
[2022-10-25] MEDS: PANTOPRAZOLE SODIUM 40 MG TABLET.DR PO SCH (06:15)
[2022-10-25] MEDS: CLONAZEPAM 0.5 MG TABLET PO PRN ×2 (06:15→13:44)
[2022-10-25] MEDS: LEVOTHYROXINE SODIUM 50 MCG TABLET PO SCH (06:15)
[2022-10-25 07:30] VITALS: BP 123/59
[2022-10-25] MEDS: CITALOPRAM 20 MG TABLET PO SCH (08:42)
[2022-10-25] MEDS: MEMANTINE HCL 5 MG TABLET PO SCH ×2 (08:42→17:25)
[2022-10-25] MEDS: AMLODIPINE 5 MG TABLET PO SCH (08:43)
[2022-10-25] MEDS: OLANZAPINE 5 MG TABLET PO SCH ×2 (08:43→20:19)
[2022-10-25] MEDS: OXCARBAZEPINE 300 MG TABLET PO SCH ×3 (08:43→17:25)
--- NOTE | 2022-10-25 14:30 | NUR ---
Received patient awake in her room. A/OX 2 to person, place. Patient is very confused, forgetful "Did I eat today?" "Where are the other kids?" "Why is so quiet here?" "When my parents are picking me up?". Patient is disorganized, disoriented, anxious, labile. Klonopin 0.5 mg is given at 13:44, semi effective. Patient ambulates with walker. Requires minimal assistance with ADL. Reality orientation provided. Fall and safety precautions implemented.
[2022-10-25 15:52] VITALS: BP 128/55
[2022-10-25 19:53] VITALS: BP 138/69
[2022-10-25] MEDS: LIDOCAINE 5% PATCH TD SCH (20:19)
[2022-10-25] MEDS: DONEPEZIL 10 MG TABLET PO SCH (20:19)
--- NOTE | 2022-10-25 20:42 | NUR ---
GPS: Remains confused,disoriented and forgetful. Reality re-orientation provided prn. Poor insight to present situation. Med.compliant. Re-directed and re-assured prn. Fall precautions observed. Will continue to monitor.
[2022-10-26] MEDS: TEMAZEPAM 7.5 MG CAPSULE PO PRN ×2 (00:01→22:24)
[2022-10-26] MEDS: NAPROXEN 500 MG TABLET PO PRN (01:15)
[2022-10-26] MEDS: PANTOPRAZOLE SODIUM 40 MG TABLET.DR PO SCH (06:02)
[2022-10-26] MEDS: LEVOTHYROXINE SODIUM 50 MCG TABLET PO SCH (06:02)
[2022-10-26] MEDS: CLONAZEPAM 0.5 MG TABLET PO PRN (07:10)
[2022-10-26 07:19] LABS: HEMATOCRIT 36.2 % (31.2-41.9); MEAN CORPUSCULAR HEMOGLOBIN 26.3 uug (24.7-32.8); PLATELET COUNT (AUTO) 305 K/uL (179-408)
[2022-10-26 07:34] LABS: BILIRUBIN,TOTAL 0.3 mg/dL (0.2-1.0); CREATININE 1.3 mg/dL (0.6-1.3); MAGNESIUM 2.2 mg/dL (1.8-2.4); PHOSPHOROUS 4.5 mg/dL (2.5-4.9); POTASSIUM 4.4 mmol/L (3.5-5.1); TOTAL PROTEIN, SERUM 6.5 g/dL (6.4-8.2)
[2022-10-26 07:49] VITALS: BP 161/79
[2022-10-26] MEDS: OXCARBAZEPINE 300 MG TABLET PO SCH ×3 (08:11→16:55)
[2022-10-26] MEDS: MEMANTINE HCL 5 MG TABLET PO SCH ×2 (08:11→16:55)
[2022-10-26] MEDS: CITALOPRAM 20 MG TABLET PO SCH (08:11)
[2022-10-26] MEDS: OLANZAPINE 5 MG TABLET PO SCH ×2 (08:11→20:37)
[2022-10-26] MEDS: AMLODIPINE 5 MG TABLET PO SCH (08:11)
--- NOTE | 2022-10-26 13:18 | NUR ---
Patient had court hearing today, associate juvenile court judge gave 30 Days probable cause for GD only.
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
--- NOTE | 2022-10-26 15:43 | NUR ---
SW Discharge Update: Director, Dominga Diaz ([phone]) spoke to the applications administrator at [facility], [place] ([phone]) and he states that [facility] will arrange transportation on Monday.
[2022-10-26 17:04] VITALS: BP 157/65
[2022-10-26] MEDS: DONEPEZIL 10 MG TABLET PO SCH (20:36)
[2022-10-26] MEDS: LIDOCAINE 5% PATCH TD SCH (20:37)
[2022-10-26 20:42] VITALS: BP 162/74
--- NOTE | 2022-10-26 21:33 | NUR ---
This bond writer received patient in the hallway. Patient is extremely confused. Upon approach patient was agitated. This bond writer asked the patient what was bothering her. Patient replied, "The kids, they aren't getting enough education !" This bond writer oriented the patient back to reality and notified her that she is currently at the hospital. Patient's vitals are stable. PO fluids and snacks were given. Will continue to monitor patient's behavior.
[2022-10-27] MEDS: NAPROXEN 500 MG TABLET PO PRN (00:33)
[2022-10-27] MEDS: PANTOPRAZOLE SODIUM 40 MG TABLET.DR PO SCH (06:09)
[2022-10-27] MEDS: LEVOTHYROXINE SODIUM 50 MCG TABLET PO SCH (06:09)
[2022-10-27 07:34] VITALS: BP 160/77
[2022-10-27] MEDS: OXCARBAZEPINE 300 MG TABLET PO SCH ×3 (08:34→16:28)
[2022-10-27] MEDS: CITALOPRAM 20 MG TABLET PO SCH (08:34)
[2022-10-27] MEDS: OLANZAPINE 5 MG TABLET PO SCH ×2 (08:34→20:41)
[2022-10-27] MEDS: MEMANTINE HCL 5 MG TABLET PO SCH ×2 (08:35→16:28)
[2022-10-27] MEDS: AMLODIPINE 5 MG TABLET PO SCH (08:35)
[2022-10-27] MEDS: CLONAZEPAM 0.5 MG TABLET PO PRN (14:26)
--- NOTE | 2022-10-27 15:13 | NUR ---
Received patient pacing in the hallway. Patient is confused, forgetful, disoriented, disorganized, anxious. Klonopin 0.5 mg is given at 14:26 for anxiety, effective. Patient is A/O X 2 to person. Patient states "Where are my parents? Is this a day care? Are they picking me up later?" Active listening provided. Fall and safety precautions implemented.
[2022-10-27 16:00] VITALS: BP 139/61
--- NOTE | 2022-10-27 20:30 | NUR ---
Received patient in the hallway sitting in the marie chair for safety near the nursing station. She is A&O x2. She is able to ambulate with slow but steady gate. She was calm and pleasant upon approach. Her affect is labile. Her mood is congruent. Patient needs constant reality orientation. Patient is reassured for her safety. Safety and fall precautions are in place. Vital signs are stable. She was given snacks and PO fluid. All her needs were met. Will continue to monitor.
[2022-10-27 20:35] VITALS: BP 139/65
[2022-10-27] MEDS: LIDOCAINE 5% PATCH TD SCH (20:42)
[2022-10-27] MEDS: DONEPEZIL 10 MG TABLET PO SCH (20:42)
[2022-10-27] MEDS: TEMAZEPAM 7.5 MG CAPSULE PO PRN (22:32)
[2022-10-28] MEDS: NAPROXEN 500 MG TABLET PO PRN (03:54)
[2022-10-28] MEDS: PANTOPRAZOLE SODIUM 40 MG TABLET.DR PO SCH (06:29)
[2022-10-28] MEDS: LEVOTHYROXINE SODIUM 50 MCG TABLET PO SCH (06:29)
[2022-10-28 07:34] VITALS: BP 138/62
[2022-10-28] MEDS: OXCARBAZEPINE 300 MG TABLET PO SCH (08:27)
[2022-10-28] MEDS: CITALOPRAM 20 MG TABLET PO SCH (08:27)
[2022-10-28 08:28] VITALS: BP 138/62
[2022-10-28] MEDS: CLONAZEPAM 0.5 MG TABLET PO PRN (08:28)
[2022-10-28] MEDS: AMLODIPINE 5 MG TABLET PO SCH (08:28)
[2022-10-28] MEDS: OLANZAPINE 5 MG TABLET PO SCH (08:28)
[2022-10-28] MEDS: MEMANTINE HCL 5 MG TABLET PO SCH (08:29)
--- NOTE | 2022-10-28 11:17 | NUR ---
patient will be discharged to [facility] via ambulance at 11;30 am via transportation from facility,patient is alert and oriented x1 to her self only , ambulate with FWW ,vital sign stable denies any pain or discomfort at all time. report given to Faviola OGDEN .
== END 2022-10-28 11:30 | DRG 881 ==
LOC: ER 12:06 → GPS 15:46
PROVIDERS: ADMIT Psychiatry & Neurology Psychiatry; ATTEND Nurse Practitioner Acute Care
DX: F32.9 Major depressive disorder, single episode, unspecified (principal); N18.31 Chronic kidney disease, stage 3a; F02.811 Dementia in other diseases classified elsewhere, unspecified severity, with agitation; F02.83 Dementia in other diseases classified elsewhere, unspecified severity, with mood disturbance; G30.9 Alzheimer's disease, unspecified; S09.93XA Unspecified injury of face, initial encounter; W18.30XA Fall on same level, unspecified, initial encounter; Z91.81 History of falling; Y92.230 Patient room in hospital as the place of occurrence of the external cause; E78.5 Hyperlipidemia, unspecified; G25.81 Restless legs syndrome; G40.909 Epilepsy, unspecified, not intractable, without status epilepticus; G47.00 Insomnia, unspecified; J45.909 Unspecified asthma, uncomplicated; Z86.73 Personal history of transient ischemic attack (TIA), and cerebral infarction without residual deficits; Z88.2 Allergy status to sulfonamides; I25.10 Atherosclerotic heart disease of native coronary artery without angina pectoris; E55.9 Vitamin D deficiency, unspecified; E11.22 Type 2 diabetes mellitus with diabetic chronic kidney disease; Z20.822 Contact with and (suspected) exposure to COVID-19; F41.9 Anxiety disorder, unspecified; Z66 Do not resuscitate; Z88.0 Allergy status to penicillin; I12.9 Hypertensive chronic kidney disease with stage 1 through stage 4 chronic kidney disease, or unspecified chronic kidney disease; Z79.899 Other long term (current) drug therapy
CPT/HCPCS: 36415; 70150; 72100; 83735; 84100; 85025; 93005; A4663; G0480; J2060; J2358